=== PATIENT | female | born 1990 | race Caucasian/White ===

== ENCOUNTER 2021-01-11 14:27 | Outpatient (CLI) | payer BC, SELFPAY ==
--- NOTE | ~2021-01-11 | CT_ITS ---
EXAMINATION: CT abdomen pelvis w con DATE: 01/11/2021 14:51 INDICATION: Abdominal wall pain TECHNIQUE: Computed tomography (CT) of the abdomen and pelvis was performed with 100 cc Omnipaque 350 intravenous contrast. Automated exposure control and iterative reconstruction technique were employe d. Exam dose: 198.12 mGy-cm total exam DLP. COMPARISON: 09/29/2018 CT abdomen pelvis 04/25/2016 gallbladder ultrasound FINDINGS: The lung bases are clear. Normal heart size. No pericardial or pleural effusion. The liver, gallbladder, bile ducts, spleen, pancreas, pancreatic duct, and adrenal glands and kidneys are unremarkable, except for a chronic stable area of probable scarring at the posterolateral aspect of the inferior right kidney, unchanged since 09/02/2018.. No urinary tract calculus or hydroureteron ephrosis. Normal caliber of the abdominal aorta. No intraperitoneal or retroperitoneal or pelvic mass lesion or adenopathy or ascites is evident. There is an approximately 2.2 cm right ovarian cyst. There is mini mal likely physiologic free fluid in the right cul-de-sac. The uterus and left adnexal area are unrem arkable. The urinary bladder is unremarkable. There is a prominent amount of fecal material in the rectum and colon but no bowel obstruction. No minna wel wall thickening, pneumatosis or intraperitoneal free air is detected. Normal abdominal wall pathology is identified. Included skeletal structures are unremarkable. IMPRESSION: 2.2 cm right ovarian cyst Chronic small scarring at the lower pole of the right kidney, stable since 09/02/2018 Reviewed, dictated and finalized at [facility] Reviewed, dictated and finalized at [facility].
== END 2021-01-11 14:28 | disposition home or self-care (01) ==
LOC: ANHIMG 14:33
PROVIDERS: PCP Chiropractor; Visit Provider Obstetrics & Gynecology
DX: R10.9 Unspecified abdominal pain (principal)
CPT/HCPCS: 74177; Q9967

== ENCOUNTER 2023-06-06 19:34 | Emergency (ER) | payer OTHER, SELFPAY ==
[2023-06-06 19:55] VITALS: BP 103/63; PULSE 122; RESP 20; TEMP 37.3; O2SAT 100
--- NOTE | 2023-06-06 23:40 | ED.ABDPAIN ---
HPI - Abdominal Pain General Chief Complaint: Abdominal Pain Stated Complaint: abd pain for 24 hrs Time Seen by Provider: 06/06/23 22:59 Source: patient Limitations: no limitations History of Present Illness MD elicited complaint: abdominal pain Pertinent past history: none Onset (ago): hour(s) (Approximately 03:30 Sunday) Pain Consistency: intermittent Location: suprapubic Severity: mild Quality: cramping Radiation: none Migration to: no migration Exacerbating factors: other (bearing down, anxiety) Relieving factors: nothing Context: denies foreign travel, denies possible food poisoning, denies sick contacts, denies recent antibiotic use, denies recent surgery/procedure, denies recent injury or confirms history of similar episodes (feels similar to period cramps but worse, currently on menses.) Associated symptoms: nausea, vomiting (once, NBNB), fever (102 oral) and other (admits to myalgias. Tolerating liquids. Denies vaginal discharge. Admits to vaginal bleeding typical or her menses. ) Treatments prior to arrival: NSAIDs (ibuprofen 800 mg TID) Related Data Allergies Allergy/AdvReac Type Severity Reaction Status Date / Time gluten Allergy Intermediate RASH,VOMITI Verified 06/06/23 23:35 NG Review of Systems Review of Systems: A 10 system review of systems was completed on the patient and is negative except for what is stated in the HPI. Nursing and ancillary documentation was reviewed. PMFSH Comments At time of signature, I have reviewed and agree with nursing past medical, surgical, social and family history unless otherwise noted. Please see the nursing chart for further information. There is no relevant family history pertinent to the presenting complaint. Exam Narrative: CONST: No acute distress. Well nourished. HENMT: Head is normocephalic and atraumatic. Dry mucous membranes. No posterior oropharynx erythema. EYES: No conjunctival icterus, injection, or pallor. PERRL. NECK: No meningeal signs. RESP: Able to speak in full sentences. Normal respiratory effort. CTAB. CARDIO: Regular rate. Regular rhythm. 2+ DP and radial pulses bilaterally. GI: Nondistended. No tenderness to palpation. Soft. : No CVA tenderness to palpation. SKIN: No rashes or lesions noted on exposed skin. NEURO: Oriented x3. Moves all extremities. EXTREM: No pedal edema. PSYCH: anxious. Course Vital Signs Vital signs: Vital Signs Temperature 99.2 F 06/06/23 19:55 Pulse Rate 122 H 06/06/23 19:55 Respiratory Rate 20 06/06/23 19:55 Blood Pressure 103/63 06/06/23 19:55 Pulse Oximetry 100 06/06/23 19:55 Oxygen Delivery Room Air 06/06/23 19:55 Temperature 99.2 F 06/06/23 19:55 Pulse Rate 100 06/07/23 04:14 Respiratory Rate 12 06/07/23 04:14 Blood Pressure 102/66 06/07/23 04:14 Pulse Oximetry 100 06/07/23 04:14 Oxygen Delivery Room Air 06/06/23 19:55 MDM - Abdominal Pain MDM Narrative Medical decision making narrative: Patient presents with the above complaint. Initial vitals are remarkable for tachycardia. Patient appears in no acute distress, mildly anxious, dehydrated. Abdominal exam without peritoneal signs. Well appearing. Low suspicion for acute hepatobiliary disease, acute pancreatitis, PUD, acute infectious processes (pneumonia, hepatitis, pyelonephritis), strangulated hernia, acute appendicitis, vascular catastrophe, mesenteric ischemia, bowel obstruction or viscus perforation. Presentation not typical of gynecologic emergencies such as TOA, Ovarian Torsion, PID, ectopic . Currently dehydrated. Plan discussed: laboratory analysis, EKG done in triage, zofran 4 mg IVP, toradol 15 mg IVP, 1 L bolus. No chest pain or shortness of breath. Aside from nausea no symptoms concerning for ACS, suspect T wave inversions diffusely are old/chronic and potentially stress related. No risk factors for ACS or PE. Discomfort is suprapubic in location. I had a discussion w
[2023-06-06 23:50] VITALS: BP 116/82; PULSE 108; RESP 12; O2SAT 100
[2023-06-06] MEDS: ONDANSETRON INJ 4 MG/2 ML VIAL IV PUSH (23:52)
[2023-06-06] MEDS: KETOROLAC 15 MG/ML VIAL (*BKC) IV PUSH (23:52)
[2023-06-06] MEDS: LACTATED RINGERS 1,000 ML 999 ML IV CONT (23:52)
[2023-06-07 00:03] LABS: Basophils Percent Auto 0.2 % (0.2-1.2); Hematocrit 41.2 % (37.0-47.0); Immature Granulocyte Absolute 0.01 K/mm3 (0.00-0.031); Immature Granulocyte Percent A 0.2 % (0-0.5); Lymphocytes Absolute Auto 0.25 K/mm3 (0.9-3.2); Lymphocytes Percent Auto 4.4 % (18.3-44.2); Mean Corpuscular Hemoglobin 31.5 pg (26-34); Mean Corpuscular Volume 92.8 fl (80-100); Mean Platelet Volume 9.2 fl (7.4-10.4); Monocytes Absolute Auto 0.2 K/mm3 (0.1-0.6); Monocytes Percent Auto 3.5 % (2.6-8.5); Neutrophils Absolute Auto 5.3 K/mm3 (1.3-6.7); Neutrophils Percent Auto 91.7 % (45.5-73.1); Platelet Count Result 191 k/mm3 (150-375); Red Blood Count 4.44 M/mm3 (4.2-5.4); Red Cell Distribution Width 11.9 % (11.5-14.5); White Blood Count 5.7 K/mm3 (4.5-10.0)
--- NOTE | 2023-06-07 00:06 | ECG_ITS ---
Measurements Intervals [place] Rate: 103 P: 59 [place]: 91 QRS: 65 QRSD: 88 T: -21 QT: 332 QTc: 435 Interpretive Statements SINUS TACHYCARDIA WITH SHORT [place] INTERVAL DELAYED PRECORDIAL R/S TRANSITION ST-T WAVE ABNORMALITY IN ANT/INF LEADS- CONSIDER ISCHEMIA ABNORMAL ECG NO PREVIOUS ECG AVAILABLE FOR COMPARISON Electronically Signed On 06-07-2023 8:22:38 CDT by Perry Krishnamurthy D.O.
[2023-06-07 00:16] LABS: Alanine Aminotransferase 22 U/L (6-35); Alkaline Phosphatase 65 U/L (38-126); Anion Gap 14 mmol/L (8-16); Aspartate Amino Transferase 34 U/L (14-36); Bilirubin,Total 0.6 mg/dL (0.2-1.3); Blood Urea Nitrogen 12 mg/dL (7-17); Calcium 9.3 mg/dL (8.4-10.2); Carbon Dioxide 20 mmol/L (22-30); Chloride 103 mmol/L (98-107); Estimated CRCL calculation 79 ml/min; Estimated Glomerular Filt Rate > 60; Glucose 120 mg/dL (65-110); Lipase 59 U/L (23-300); Magnesium 1.8 mg/dL (1.6-2.3); Sodium 137 mmol/L (137-145)
[2023-06-07 00:39] LABS: Influenza A QL RT-PCR Negative (Negative); Influenza B QL RT-PCR Negative (Negative); SARS-CoV-2 RNA PCR Negative (Negative)
[2023-06-07 01:45] VITALS: BP 113/83; PULSE 100; RESP 14; O2SAT 100
[2023-06-07 01:58] LABS: Appearance Urine Cloudy (Clear); Bacteria Urine None Seen /hpf; Bilirubin Urine Negative (Negative); Blood Urine Negative (Negative); Color Urine Dark Yellow (Yellow); Glucose Urine UA Negative (Negative); Ketones Urine 4+ mg/dL (Negative); Leukocyte Esterase Ur Negative LEU/UL (Negative); Need Manual Microscopic Reviewed; Nitrate Urine Negative (Negative); Protein Urine 1+ mg/dL (Negative); RBC Urine 0-2 /hpf (0-2); Squamous Epithelial Cell Urine Few /hpf (Few); Urobilinogen Urine 0.2 mg/dL (<2.0); WBC Urine 0-5 /hpf; pH Urine 5.5 (5.0-9.0)
[2023-06-07 01:59] LABS: Add Urine Microscopic? YES
[2023-06-07 04:14] VITALS: BP 102/66; PULSE 100; RESP 12; O2SAT 100
== END 2023-06-07 04:10 | disposition home or self-care (01) ==
PROVIDERS: Emergency Provider Student in an Organized Health Care Education/Training Program; PCP Chiropractor
DX: R10.30 Lower abdominal pain, unspecified (principal); R11.2 Nausea with vomiting, unspecified; R82.4 Acetonuria; Z20.822 Contact with and (suspected) exposure to COVID-19
CPT/HCPCS: 36415; 80053; 81001; 81025; 83690; 83735; 85025; 87636; 93005; 96361; 96374; 96375; 99284; J1885; J2405; J7120

== ENCOUNTER 2023-12-19 03:33 | Day surgery (SDC) | payer OTHER, SELFPAY ==
[2023-12-12 10:28] VITALS: BMI 20.1
--- NOTE | 2023-12-12 10:34 | PC.NURSE ---
Report to the Outpatient Waiting Room, entrance under the green pavilion located off [facility], at time 0800 on date 12/19/23. Planned Procedure Time: 1000. Time changes happen often and if your time is changed the preop area will call you the afternoon before. - You and your visitor will be asked to self-screen and do not enter if you have any COVID symptoms. - A mask is optional within the hospital at this time. Patients may have clear liquids (water, carbonated beverages, clear teas, apple juice) until 3 hours prior to surgery with a maximum of 20 ounces. - No food from midnight until time of surgery Take the following medications with a SIP of water the morning of surgery: NONE DO NOT STOP ANY OF YOUR OTHER PRESCRIPTION MEDICATIONS PRIOR TO SURGERY ?EXCEPT THE FOLLOWING Medications to discontinue per physician: VITAMINS Date to take last dose: 12/15/23 Please no make-up, nail panamanian, hairspray, perfume, deodorant, or body powder the day of surgery. No jewelry (including any body piercings) or valuables the day of surgery, leave them at home. Please take a shower or bath the night before, or the morning of, surgery with an antibacterial soap. Wear comfortable, loose fitting clothing. - Jewelry must be removed prior to entering the operating room. Rings and piercings that are not removed may be cut off. - The hospital will not accept responsibility for valuables. - Please leave all valuables, including medications, at home the day of surgery. If you are going home after surgery, a licensed charter driver must drive you home. - NO public transportation without another adult if you receive anesthesia. - We recommend that an adult stay with you for 24 hours following discharge. - We also recommend that you do not drive, make important decision, drink alcoholic beverages, or take any drugs that were not prescribed by your health care provider for at least 24 hours after your discharge time. Follow any additional instructions given to you from your surgeon. If you or anyone in your household have experienced Covid symptoms in the past week, please notify your surgeon or the nurse liaison at the phone number below for possible testing. Telephone instructions given to MICHAEL MERINO and asked if any additional questions and then verbalized understanding. Patient advised to call surgeon office or pre surgery nurse liaison [phone] if any additional questions.
[2023-12-19] VITALS (8 sets, daily range): BP systolic 99–114; BP diastolic 50–70; PULSE 87–100; RESP 12–16; TEMP 37–37.3; O2SAT 100
[2023-12-19] MEDS: ACETAMINOPHEN 500 MG TABLET 1000 MG PO (08:21)
[2023-12-19] MEDS: LACTATED RINGERS 1,000 ML 30 ML IV CONT ×2 (08:25→11:54)
[2023-12-19] MEDS: KETOROLAC 15 MG/ML VIAL (*BKC) IV PUSH (08:28)
[2023-12-19] MEDS: SCOPOLAMINE 1 MG PATCH 1 PATCH TRANSDERM (08:35)
--- NOTE | 2023-12-19 09:04 | WPDANESEPPF ---
Anes - Initial Pre Proc Eval Procedure: Operation Date: 12/19/23 10:00 Proposed Procedures p Diagnostic Laparoscopy with Bilateral Salpingectomy - Cory Acosta MD Date/Time: 12/19/23 09:04 Surgeon: Cory Acosta MD Pre Op Diagnosis: pelvic pain Patient Data Age: 33 Gender: F Height: 1.57 m Weight: 49.1 kg Last Vital Signs Temp 37.3 C 12/19/23 07:55 Pulse 91 12/19/23 07:55 Resp 16 12/19/23 07:55 BP 111/64 12/19/23 07:55 Pulse Ox 100 12/19/23 07:55 O2 Del Method Room Air 12/19/23 07:55 Allergies Allergy/AdvReac Type Severity Reaction Status Date / Time gluten Allergy Intermediate RASH,VOMITI Verified 12/19/23 07:57 NG Home Medications Medication Instructions Recorded Confirmed Type multivitamin 1 tablet PO DAILY 12/12/23 12/19/23 History Patient hx anesthesia problems: none Family hx anesthesia problems: none Results Review: All pre-operative results and documents have been reviewed as part of the pre-operative evaluation. [facility] Past Medical History Medical History (Updated 12/19/23 @ 09:04 by Marco A Lin MD) Lyme disease Surgical History Surgical History (Updated 12/19/23 @ 09:04 by Marco A Lin MD) History of section Social History Social History Smoking status: Never smoker Alcohol intake: never Substance use: never Substance use type: does not use Living arrangements: with family Spiritual care concerns: No Anes - Eval Final PreProcedure Day of Procedure 12/19/23 09:04 Patient weight: normal Heart: regular rate and rhythm Lungs: clear to auscultation Airway: Mallampati scale class II Neurological: alert and oriented Last oral intake: >/= 8 hours ASA classification: II Emergent: no Anesthetic plan: proceed Anesthesia type and monitoring: general ETT and standard monitoring Results Review: All pre-operative results and documents have been reviewed as part of the pre-operative evaluation. Informed Consent: The patient's anesthetic plan and its attendant risks and benefits were discussed with the patient/family/POA. Questions were solicited and answers provided to the satisfaction of the patient/family/POA.
--- NOTE | 2023-12-19 09:49 | PM.IMHP ---
H&P: HPI History of Present Illness Date/Time: 12/19/23 09:49 Chief Complaint: Pelvic pain, unwanted fertility Narrative: this patient is a 33-year-old female who presents for preoperative care. She has pelvic pain and unwanted fertility. We agreed to perform diagnostic laparoscopy and bilateral salpingectomy. She is a possible endometrioma. The patient understands the procedure. The procedure was described to the patient in great detail. the patient also understands the risks. The risks were also explained in detail. She understands that injuries May occur during surgery. She understands these injuries can result in hospitalization, more surgery, and severe illness. She understands there is risk of hemorrhage and infection. ROS Review of Systems Review of Systems: All systems reviewed & are unremarkable except as noted in HPI and below Constitutional: Constitutional: Denies chills, Denies fatigue, Denies fever(s) and Denies weakness Eyes: Eyes: Denies blurry vision, Denies change in vision, Denies loss of peripheral vision, Denies loss of vision, Denies other visual disturbances and Denies eye pain ENT: Denies vertigo, Denies dizziness, Denies hearing loss, Denies mouth pain, Denies nasal obstruction, Denies neck mass and Denies neck pain Cardiovascular: Cardiovascular: Denies chest pain, Denies diaphoresis, Denies syncope, Denies leg edema and Denies dyspnea Respiratory: Respiratory: Denies chest congestion, Denies cough, Denies hemoptysis, Denies dyspnea and Denies wheezing Gastrointestinal: Gastrointestinal: Denies abdominal pain, Denies constipation, Denies diarrhea, Denies nausea and Denies vomiting Genitourinary: Genitourinary: Denies hematuria, Denies change in libido, Denies nocturia, Denies genital lesions, Denies flank pain and Denies urinary urgency Musculoskeletal: Musculoskeletal: Denies abnormal gait, Denies back pain, Denies myalgias, Denies arthralgias, Denies joint swelling, Denies muscle weakness and Denies neck pain Integumentary/Breasts: Skin/Breast: Denies swelling, Denies breast pain, Denies breast mass, Denies dry skin, Denies nipple discharge, Denies unusual bruising and Denies jaundice Neurologic: Denies Neuro-related abnormal movements, Denies Abnormal speech present, Denies abnormal gait, Denies behavioral changes, Denies confusion, Denies vertigo, Denies dizziness, Denies syncope, Denies loss of vision, Denies memory loss, Denies convulsions and Denies weakness Psychiatric: Psychiatric: Denies abnormal sleep pattern, Denies behavioral changes, Denies change in libido, Denies confusion, Denies depression, Denies anhedonia and Denies memory loss Endocrine: Endocrine: Reports no additional endocrine complaints, Denies change in libido and Denies fatigue Hematologic/Lymphatic: Hematologic/Lymphatic: Reports no additional hematologic/lymphatic complaints Allergic/Immunologic: Allergic/Immunologic: Reports no additional allergic/immunologic complaints and Denies wheezing PMFSH Past Medical History Medical History (Updated 12/19/23 @ 09:51 by Cory Acosta MD) Lyme disease Surgical History Surgical History (Updated 12/19/23 @ 09:04 by Marco A Lin MD) History of section Social History Social History Smoking status: Never smoker Alcohol intake: never Substance use: never Substance use type: does not use Living arrangements: with family Spiritual care concerns: No Meds Home Medications and Allergies Home Medications Medication Instructions Recorded Confirmed Type multivitamin 1 tablet PO DAILY 12/12/23 12/19/23 History Allergies Allergy/AdvReac Type Severity Reaction Status Date / Time gluten Allergy Intermediate RASH,VOMITI Verified 12/19/23 07:57 NG Vital Signs Vital Signs - 24 hr 12/19/23 07:55 Temperature 99.2 F Pulse Rate 91 Respiratory Rate 16 Blood Pressure 111/64 Pulse Oximetry 100 Oxygen Delivery Room Air Exam Const:
--- NOTE | 2023-12-19 09:51 | WPDHPUPDATE1 ---
History and Physical Update Update Date/Time: 12/19/23 09:51 History and Physical has been reviewed, including an updated exam of the patient. There are NO changes in the patient's condition. Risks, benefits, and alternatives have been discussed and questions answered. Patient agrees to proceed with procedure.
--- NOTE | 2023-12-19 12:04 | W.PM.PROC2 ---
Procedure Note - Detailed Date of Procedure 12/19/23 Pre-op Diagnosis pelvic pain Post-op Diagnosis Same ( endometriosis) Procedure Performed Diagnostic laparoscopy Surgeon Cory Acosta MD Anesthesia General Indications Pelvic pain Findings Left ovarian endometrioma, multiple endometrial implants in the deep pelvis favoring the left side. Description of Procedure The patient was taken to the operating room. She was prepped and draped in the dorsal lithotomy position after induction general anesthesia. A 5 mm incision was made with a scalpel on the abdominal skin in the left upper quadrant of the abdomen. A 5 mm trocar was inserted into the intra-abdominal cavity under direct visualization the scope. In the same fashion a 5 mm left lower quadrant trocar was inserted and a 5 mm infraumbilical trocar was inserted. Left ovarian cystectomy was performed. This was done with the LigaSure cautery, monopolar cautery, blunt dissection. Dome of the cyst capsule was removed. Cyst capsule was peeled out of the ovary and cautery was applied to the bleeding areas on the cut surface. Radical dissection of endometriosis perform a left hemipelvis. Ovary was suspended using the Ean-Lauri needle placed through the abdominal wall the left lower quadrant through the ovary passing suture. The suture was redrawn the same incision with the needle and held there with a hemostat. Pelvic peritoneum in the left hemipelvis was removed from the rectum laterally to the suspensory ligament the ovary and the infundibulopelvic ligament of the ovary. From the infundibulopelvic ligament down to the uterine arteries. This was done with sharp and blunt dissection using cautery to transect the vascularity. The ureter was dissected out from the pelvic brim down to the uterine artery. Various implants of endometriosis were removed and cauterized in the deep pelvis and the distal medial right hemipelvis. This was done with cautery and blunt , sharp dissection. The pelvis was irrigated. The pneumoperitoneum was reduced. The trocars were removed. Skin was closed with subcuticular 4 micro. The patient's incisions were covered with Dermabond. She was taken recovery room in stable condition. Sponge lap and needle counts were correct x2. Estimated Blood Loss 50 Pathology Yes Complications No immediate complications Condition Stable Disposition Same day
[2023-12-19] MEDS: ONDANSETRON INJ 4 MG/2 ML VIAL IV PUSH (12:06)
[2023-12-19] MEDS: fentaNYL CITRATE INJ (*CRX) 100 MCG/2 ML VIAL 25 MCG IV PUSH (12:24)
== END 2023-12-19 13:31 | disposition home or self-care (01) ==
PROVIDERS: PCP Chiropractor; Visit Provider Obstetrics & Gynecology
PROC: (CPT 49320; principal; 2023-12-19 10:00)
DX: N80.102 Endometriosis of left ovary, unspecified depth (principal); N80.399 Endometriosis of the pelvic peritoneum, other specified sites, unspecified depth; N80.203 Endometriosis of bilateral fallopian tubes, unspecified depth; Z30.2 Encounter for sterilization
CPT/HCPCS: 58662; 58661; 88302; 88305; A9270; J1100; J1885; J2250; J2405; J2704; J3010; J7030; J7120

== ENCOUNTER 2024-10-29 10:28 | Outpatient (CLI) | payer OTHER, SELFPAY ==
--- NOTE | ~2024-10-29 | MMUS_ITS ---
EXAMINATION: MM diagnostic sabrina BI w neris, US breast RT limited HISTORY: Palpable right breast lump TECHNIQUE: Additional 3-D tomosynthesis images of the breasts were performed and synthetic 2-D images were generated. CAD analysis was submitted and interpreted. High resolution Limited right breast ult rasound was performed. COMPARISON: No prior studies for comparison. BREAST PARENCHYMAL COMPOSITION: Dense: The breasts are extremely dense, which lowers the sensitivity of mammography. FINDINGS: MAMMOGRAPHIC FINDINGS: There is a small circumscribed mass in the upper outer quadrant of the right breast in the area of pa lpable concern. No suspicious calcifications or architectural distortion. No mammographic evidence fo r malignancy in the left breast. ULTRASOUND: Limited right breast ultrasound: At 9:00, 2 cm from the nipple there is a 4 mm cyst corresponding to the palpable abnormality. IMPRESSION: 1. No evidence for malignancy in either breast. Benign finding. 2. Recommend follow-up mammogram at age 42 unless otherwise clinically indicated. BI-RADS Category 2: Benign finding(s). Reviewed, dictated and finalized at location A. E CALLS NURSE IMPRESSION: 1. No evidence for malignancy in either breast. Benign finding. 2. Recommend follow-up mammogram at age 42 unless otherwise clinically indicate d. BI-RADS Category 2: Benign finding(s).
--- OUTSIDE RECORDS SUMMARY | 2024-10-29 11:29 | XMS_ITS | Clinical Summary ---
Author Organization [facility] Address [address] [place] [address] Care Team Providers Care Merchandise Buyer Name Role Phone Pancho Rogers DC Primary Care Provider Allergies Active Allergy Reactions Criticality Noted Date Comments Gluten Unknown 01/08/2019 Medications No known medications Active Problems Problem Noted Date Diagnosed Date Preop examination 09/21/2023 Abnormal ECG 09/21/2023 Lyme disease 01/03/2019 Overview (02/24/2019): this diagnosis is poorly defined with no set diagnostic criteria and is often used to describe chronic pain, fatigue, neurocognitive, and behavioral symptoms, and a host of neurologic and rheumatologic diseases. I've requested that Tamara bring her medical records surrounding Lyme Disease to her next appointment (she states that she has them at home). Given the lack of diagnostic criteria, there is no literature for Chronic Lyme Disease and . I took the liberty of looking up the ingredients in [employer] and found the following: Magnesium citrate, bovine ovary PMG extract, bovine adrenal PMG extract, bovine pituitary PMG extract, and bovine thyroid PMG extract. Given the lack of study in and the likelihood that risks exceed benefits, I would recommend discontinuation of this supplement. Mitral valve disorder 01/03/2019 Chest pain 06/03/2013 Difficulty breathing 06/03/2013 Overview (02/24/2019): Tamara is currently undergoing work-up with a public safety director and we will follow along. Of note, her vital signs/O2 saturation was normal today. Her echocardiogram showed no evidence of mitral valve prolapse, but there was mild mitral valve, tricuspid valve, and pulmonic valve regurgitation. In general, mild valve regurgitation is well-tolerated in in the setting of normal left ventricular systolic function, but we will see her back after her cardiology follow-up visit to review the work-up and make any additional recommendations. In the interim, she was given strict precautions for calling/presenting to the emergency department with any concerning cardiac symptoms. Palpitations 04/29/2013 Lumbago 12/05/2011 Resolved Problems Problem Noted Date Diagnosed Date Resolved Date 23 weeks gestation of 03/08/2019 02/26/2020 Supervision of high-risk pre gnancy, unspecified trimester 01/03/2019 02/26/2020 Overview (02/04/2019): Labs: B positive Antibody screen- negative HBsAg nonreactive Hep C nonreactive HIV nonreactive RPR nonreactive Rubella Immune HGB 13.5 HCT 39.7 GC/CHL negative Platelet 267 HGB A1C 4.8 Bacteremia 06/20/2013 02/26/2020 Immunizations Name Administration Dates Next Due Tdap 06/30/2019 Surgical History Surgery Date Site/Laterality Comments SECTION Medical History Medical History Date Comments Lyme disease Mitral valve regurgitation Family History Medical History Relation Name Comments Cancer Mother Diabetes Other 1 Breast cancer Other 2 Relation Name Status Comments Brother Father Alive Mother Alive Other 1 Other 2 Social History Tobacco Use Types Packs/Day Years Used Date Smoking Tobacco: Never Smokeless Tobacco: Never Tobacco Cessation:Counseling Given: Not Answered Alcohol Use Standard Drinks/Week Comments Never 0 (1 standard drink = 0.6 oz pur e alcohol) AUDIT-C Answer Date Recorded Frequency of Alcohol Consumption Never 01/08/2019 Average Number of Drinks Not on file 019 Frequency of Binge Drinking Not on file 12/30 PHQ-2 Answer Date Recorded PHQ-2 Total Score 0 02/26/2020 Personal Safety Answer Date Recorded Getting School Help Needed Not on file 09/12 Comments No Sex and Gender Information Value Date Recorded Sex Assigned at Not on file Legal Sex Female 2:37 AM MEDICAL DIRECTOR OF HOSPICE Gender Identity Not on file Sexual Orientation Not on file Obstetrics History Para Term AB IAB SAB Ectopic Multiple Livin g Live Births 1 Date Outcome GA Total Labor Labor/2nd/3rd Weight Sex Type Anes PTL Mariola A1 A5 Name Clin Last Filed Vital Signs Vital Sign Reading Time Taken Comments Blood Pressure 90/68 11/01/2023 2:25 PM MEDICAL DIRECTOR OF HOSPICE Pulse 79 11/01/2023 2:25 PM MEDICAL DIRECTOR OF HOSPICE Temperature 36.8 ??C (98.3 ??F) 02/26/2020 9:31 AM CD T Respiratory Rate 16 11/01/2023 2:25 PM MEDICAL DIRECTOR OF HOSPICE Oxygen Saturation 99% 11/01/2023 2:25 PM MEDICAL DIRECTOR [employer] HOSPICE Inhaled Oxygen Concentration - - Weight 49.4 kg (109 lb) 11/01/2023 2:25 PM MEDICAL DIRECTOR OF HOSPICE Height 157.5 cm (5' 2 ) 11/01/2023 2:25 PM MEDICAL DIRECTOR [employer] HOSPICE Body Mass Index 19.94 11/01/2023 2:25 PM MEDICAL DIRECTOR OF HOSPICE Plan of Treatment Health Maintenance Due Date Last Done Comments Varicella Vaccines (1 of 2 - 13+ 2-dose series) 2005 Hepatitis B Screening 2010 Regular Well Visit/Exam 18-64 2010 Cervical Cancer Screening 11/08/2018 11/08/2017 Depression Screening 02/25/2021 02/26/2020 Influenza Vaccine (#1) 2024 DTaP/Tdap/Td Vaccine (2 - Td or Tdap) 06/30/2029 06/30/2019 Hepatitis C Screening Completed 12/24/2018 HPV Vaccines Aged Out No longer eligi ble based on patient's age to complete this topic Pneumococcal vaccine <65 Aged Out No longer eligible based on patient's age to complete this topic Procedures Procedure Name Priority Date/Time Associated Diagnosis Comments HEPATITIS C ANTIBODY Routine 12/24/2018 HM PAP SMEAR Routine 11/08/2017 from Last 3 Months or Most Recently Relevant to Health Maintenance Results * Hepatitis C antibody (12/24/2018) Hep C Ab negative Blood specimen (specimen) Mehran Acosta MD LAB MICROBIOLOGY - GENERAL OR DERABLES Final Result * PAP SMEAR (11/08/2017) Pap smear Normal 11/08/2017 us Historical Provider HEALTH MAINTENANCE Final Result from Last 3 Months or Most Recently Relevant to Health Maintenance Insurance [employer] OPEN ACCESS [employer] OPEN ACCESS Care Teams Merchandise Buyer Relationship Specialty Start Date End Date Pancho Rogers DC [address] [place] [address] PCP - General Chiropractic Medicine 09/21/23
--- OUTSIDE RECORDS SUMMARY | 2024-10-29 11:29 | XMS_ITS | Clinical Summary ---
Author Organization [facility] Address [address] [place] [address]. [place], [place] [id number] [place] [id number] Care Team Providers Care Outdoor Recreation Specialist Name Role Phone Valentina Harrington MD Primary Care Provider [phone] Allergies No known active allergies Medications fish oil (OMEGA-3 FATTY ACID) 1000 MG Cap capsule Take 1,000 mg by mouth daily. Unsure of dose Active NON FORMULARY Take 1 tablet by mouth daily. immuplex dietary supplement Active Family History Medical History Relation Comments Diabetes Maternal Aunt Cancer Mother breast Diabetes Mother Liver Disease Paternal Uncle Relation Status Comments Maternal Aunt Mother Alive Paternal Uncle Social History Tobacco Use Types Packs/Day Years Used Date Smoking Tobacco: Never Smokeless Tobacco: Never Alcohol Use Standard Drinks/Week Comments Not Currently 0 (1 standard drink = 0.6 oz pur e alcohol) Comments No Sex and Gender Information Value Date Recorded Sex Assigned at Not on file Legal Sex Female 8:47 PM CDT Gender Identity Not on file Sexual Orientation Not on file Last Filed Vital Signs Vital Sign Reading Time Taken Comments Blood Pressure 97/50 03/31/2020 9:35 AM CDT Pulse 87 03/31/2020 9:35 AM CDT Temperature 37.2 ??C (99 ??F) 03/31/2020 9:35 AM CDT Respiratory Rate 16 03/31/2020 9:35 AM CDT Oxygen Saturation 100% 03/31/2020 9:35 AM CDT Inhaled Oxygen Concentration - - Weight 50.4 kg (111 lb 1.8 oz) 03/31/2020 6:00 A M CDT Height 160 cm (5' 3 ) 03/31/2020 6:00 AM CDT Body Mass Index 19.68 03/31/2020 6:00 AM CDT Plan of Treatment Health Maintenance Due Date Last Done Comments Annual Physical 1995 Hepatitis C 2010 DTaP, Tdap and Td Vaccines ( 1 - Tdap) 2011 Hepatitis B Vaccines (1 of 3 - 19+ 3-dose series) 2011 Cervical Cancer Screening Pa p Smear (Age 30 to 64) Every 3 Years 05/22/2017 05/22/2014, 05/22/2014 Cervical Cancer Screening Pa p with HPV Testing (Age 30 to 64) Every 5 Years 2022 Cervical Cancer Screening wi th HPV 2022 COVID-19 Vaccine (2023-2 5 season) 2024 Influenza Adult (#1) 2024 HPV Vaccines Aged Out No longer eligi ble based on patient's age to complete this topic Meningococcal B Vaccine Aged Out No l onger eligible based on patient's age to complete this topic Meningococcal Vaccine Aged Out No amrit melani eligible based on patient's age to complete this topic Pneumococcal Vaccine: Pediatrics (0 to 5 Years) and At-Risk Patients (6 to 64 Years) Aged Out No longer eligible b ased on patient's age to complete this topic RSV Immunizations Under 20 Months Aged Out No longer eligible b ased on patient's age to complete this topic Procedures Procedure Name Priority Date/Time Associated Diagnosis Comments THINPREP IMAGING SYSTEM PAP Routine 05/22/2014 12:46 PM CDT from Last 3 Months or Most Recently Relevant to Health Maintenance Results * THINPREP IMAGING SYSTEM PAP (05/22/2014 12:46 PM CDT) THIN PREP PAP [facility] TO [facility] CONVERSION Comment: Patient Name: ANGELIQUE THOMPSON Specimen #: [id number] ??Procedure Date: 05/22/2014 /Age: 8 1990 (Age: 23) Gender: ??F Accessioned: 05/23/2014 Address: [address] [place], [place] ??[address] Reported: 05/30/2014 ?? Encounter: [id number] Location: [facility] ?? Physician(s): ROSE MARY WATSON MD ?? : ? CYTOPATHOLOGY - GYNECOLOGIC REPORT Diagnosis: TEST NAME: ??THINPREP PAP WITH BRANCH SERVICE REPRESENTATIVE,REFLEX HPV-ASCUS ONLY INTERPRETATION/RESULT: NEGATIVE FOR INTRAEPITHELIAL LESION OR MALIGNANCY. ?? STATEMENT OF ADEQUACY: SATISFACTORY FOR EVALUATION; ENDOCERVICAL/TRANSFORMATION ZONE COMPONENT PRESENT; PARTIALLY OBSCURING BLOOD. ?? LJR JEREMY MARCELO, ??CT (ASCP) hta/05/30/2014 Report Electronically Signed Specimen: THINPREP PAP WITH BRANCH SERVICE REPRESENTATIVE,REFLEX HPV-ASCUS ONLY Clinical Diagnosis and History Date of Last Menstrual Period: ? [id number] Specimen Source: Cervical ? PAP SMEARS ARE SCREENING TESTS SUBJECT TO BOTH FALSE NEGATIVE AND FALSE POSITIVE RESULTS EVIDENCED BY DATA PUBLISHED IN THE MEDICAL LITERATURE. YOUR PATIENT'S RESULT SHOULD BE INTERPRETED IN THIS CONTEXT, TOGETHER WITH THE PATIENT'S HISTORY AND CLINICAL FINDINGS. 05/22/2014 12:4 6 PM CDT Narrative [facility] CONVERSION - 05/22/2014 12:46 PM CDT [[facility] Forward[facility] to [facility]] Send nml pap card us Rose Mary Watson MD PATHOLOGY/CYTOLOGY ORDERABLES [facility] Result [facility] TO [facility] CONVERSION from Last 3 Months or Most Recently Relevant to Health [place] [address] [facility] Care Teams Outdoor Recreation Specialist Relationship Specialty Start Date End Date Valentina Harrington MD [address] [place] [id number] PCP - General FAMILY PRACTICE 03/26/20
--- OUTSIDE RECORDS SUMMARY | 2024-10-29 11:29 | XMS_ITS | Data Portability ---
Author Organization [facility] Address [address] [place] [address] Care Team Providers Care Crystal Finisher Name Role Phone ARMENDARIZMARLIN Primary Care Provider [phone] Assessment Encounter Date Assessment Date Assessment LastModified by Organization Details LastModified Time 07/28/2021 07/28/2021 Annual gynecological exam performed. Patient will come back in a year unless there are new symptoms. Not available 07/28/2021 15:54:56 10/14/2024 10/14/2024 Annual gynecological exam performed. Patient will come back in a year unless there are new symptoms. [email or web address] Not available 10/14/2024 14:30:03 Plan of Treatment Reminders Order Date Submit Date Provider Last Modified By Organization Details Last Modified Time Details Appointments None recorded. Lab None recorded. Referral None recorded. Procedures None recorded. Surgeries hysteroscop y, with endometrial ablation (SURG) 2022 023 [email or web address] 4 [facility], [address] [place] [address], [address], 4 17:11:06 laparoscopy , diagnostic (SURG) 2022 023 API-[id number] [facility], [address] [place] [address], [address], 4 11:32:35 salpingecto my, laparoscopi c (SURG) 2022 023 API-[id number] [facility], [address] [place] [address], [address], 4 09:53:57 Imaging MAMMO, diagnostic, digital, bilateral 2024 025 [facility], [address], [place], [address], 5 04:09:58 US, breast, unilateral - right breast lump around 9oclock 2024 025 [facility], [address], [place], [address], 5 04:09:58 Medication Orders None recorded. Patient TargetsNo targets recorded. Patient InstructionsNo instructions recorded. Reason for Referral None Reported. Results Created Date Observation Date Name Description Value Unit Range Abnormal Flag Note LastModifiedBy Organization Detail LastModifiedTime 07/28/2007/28/2021 IMAGE GUIDE D PAP, REFLE X HPV IF ASCUS ONLY image guided Pap, reflex HPV ASCUS only SEE RESULT S BELOW CASE REPOR T: Cytol ogy Gynec ologi raul Repor t Case: [id number] Autho chelita g Provi myriam: Danuta Acosta MD Colle cted: 07/28 1619 Order ing Locat ion: [place] [facility] Recei carlita: 07/29 0055 First Scree n: Zach Anguiano, CT Rescr een: Josephine Fox, CT Speci men: Scree ryan Pap - Image d, Cervi x STATE MENT OF ADEQU ACY: Satis facto ry for evalu ation Trans forma tion zone compo nent absen t The absen ce of an endoc ervic al compo nent was confi rmed by an addit ional scree ner. FINAL DIAGN OSIS: Negat marky for Intra epith elial Lesio n or Pamella dang (NIL) . Shift in mikael sugge stive of bacte rial vagin osis. Elect anish santiago sweta d by Josephine Fox, CT on 2020 at 3:08 PM ----- ----- ----- ----- ----- ----- ----- ----- ----- ----- ----- ----- ----- ----- ----- ----- ----- ---- COMME NT: Note: This speci men was revie wed by a Cytot echno logis t and/o r Patho logis t (as indic ated in this repor t) after evalu ation using the Thinp rep Imagi ng Syste m. CLINI RAUL INFOR MATIO N: Menst rual Statu s: LMP (if appli cable ): Clini raul Histo ry/Pr eviou s Pap: Type of Neopl tamika (if appli cable ): Signi fican t Clini raul Findi ngs: Other Histo ry: Hormo eugenio (if appli cable ): PAP EDUCA GARRY L NOTE: The Pap Test is a scree ryan test with an inher ent false negat marky rate. Liqui d-bas e sampl ing may decre ase, but will not elimi miriam, false negat marky resul ts. A negat marky resul t does not precl ude the prese nce and/o r devel opmen t of disea se, since the prese nce of abnor mal cells in the sampl e depen ds on the locat ion of the lesio n and sampl ing techn ique. Luis nued regul ar scree ryan is the best metho d of cance r preve ntion . If repor alicia cytol ogic findi ng do not corre late with physi raul and/o r histo rical findi ngs, furth er inves tigat ion is recom valencia d, as neisha rios nted. Not Available [facility] (Lab) [address], [place], [address], 08/04/2021 16:11:17 10/14/19 25 10/14/2024 IMAGE GUIDE D PAP AND HPV REGAR DLESS image guided Pap, HPV regardless of Pap result SEE RESULT S BELOW CASE REPOR T: Cytol ogy Gynec ologi raul Repor t Case: [id number] Autho chelita jay Provi myriam: Indy Richardson NP Colle cted: 10/14 1547 Order ing Locat ion: [place] [facility] [place] Recei carlita: 10/15 0123 First Scree n: Toya arguelles, Marleny carter, CT Rescr een: Taylor Cadena, CT Speci men: Urban davis Pap - Image d, Cervi x STATE MENT OF ADEQU ACY: Satis facto ry for evalu ation Trans forma tion zone compo nent prese nt ----- ----- ----- ----- ----- ----- ----- ----- ----- ----- ----- ----- ----- ----- ----- ----- ----- ---- FINAL DIAGN OSIS: Negat marky for Intra epith elial Lessourav ha or Pamella dang (NIL) . 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 COMME NT: This speci men was revie wed by a Cytot echno logis t and/o r Patho logis t (as indic ated in this repor t) after evalu ation using the Thinp rep Imagi ng Syste m. CLINI RAUL INFOR MATIO N: Menst rual Statu s: LMP (if appli cable ): Clini raul Histo ry/Pr eviou s Pap: Type of Neopl tamika (if appli cable ): Signi fican t Clini raul Findi ngs: Other Histo ry: Hormo eugenio (if appli cable ): PAP EDUCA GARRY L NOTE: The Pap Test is a scree ryan test with an inher ent false negat mraky rate. Liqui d-bas ed sampl ing may decre ase, but will not elimi miriam, false negat marky resul ts. A negat marky resul t does not precl ude the prese nce and/o r devel opmen t of disea se, since the prese nce of abnor mal cells in the sampl e depen ds on the locat ion of the lesio n and sampl ing techn ique. Luis nued regul ar scree ryan is the best metho d of cance r preve ntion . If repor alicia cytol ogic findi ng do not corre late with physi raul and/o r histo rical findi ngs, furth er inves tigat ion is recom valencia d, as clini mirlande rios nted. Not Available [facility] (Lab) [address], [place], [address], 10/21/2024 13:58:46 07/23/20 23 06/29/2023 US, pelvi s No observ ation record ed. [email or web address] Ultrasound Formerly [facility], [facility], [place], [address], 07/23/2023 21:26:48 Result Notes None recorded. Problems Name Problem SNOMED Code Status Onset Date Resolution Date Notes Provider Name and Address Organization Details Recorded Time Normal pregnanc y in multigra michael 11970130102 4106 Completed 201812/28/2020 Encounte r for suprvsn of normal pregnanc y, third trimeste r;Practi ce ID: 0001 Kirsten Salas [facility] 09:51:10 Single live [id number] Completed 201812/28/2020 Single live ;Pr actice ID: [id number] Kirsten Salas [facility] 09:51:30 Pelvic and perineal pain 868619652 Completed 201912/28/2020 Pelvic and perineal pain;Pra ctice ID: [id number] Kirsten Salas [facility] 09:51:13 Urinary tract infectio us disease 22407847 Completed 201812/28/2020 Urinary tract infectio n, site not specifie d;Record ed Elsewher e: No Locat ion: [facility] S ource: EHR Phone Triage Specialist ce: N Jennifferti ce ID: 0001 Ace lable Time: 04:30:00 PM Kirsten Salas [facility] 09:50:22 Complica tion of pregnanc y, childbir th and/or puerperi [id number] Completed 201812/28/2020 Oth diseases and conditio ns compl preg/chl dbrth;Re corded Elsewher e: No Locat ion: [facility] S ource: EHR Phone Triage Specialist ce: N Practi ce ID: 0001 Ace lable Time: 12:45:00 PM Kirsten Salas [facility] 09:52:18 Cyst of ovary Completed 201712/28/2020 Unspecif ied ovarian cyst, unspecif ied side;Rec orded Elsewher e: No Locat ion: [facility] S ource: EHR Phone Triage Specialist ce: N Practi ce ID: 0001 Ace lable Time: 03:00:00 PM Kirstenmanas Salas [facility] 09:50:[address] Concept Completed 201812/28/2020 Encntr for strategy director exam (general ) (routine ) w/o abn findings ;Recorde d Elsewher e: No Locat ion: Kirt lares [facility] S ource: EHR Phone Triage Specialist ce: N Jennifferti ce ID: 0001 Ace lable Time: 09:45:00 AM Kirsten Salas [facility] 09:51:36 Antenata l screenin g Completed 201812/28/2020 Encounte r for antenata l screenin g for nuchal transluc ency;Rec orded Elsewher e: No Locat ion: Kirt lares [facility] S ource: EHR Phone Triage Specialist ce: N Jennifferti ce ID: 0001 Ace lable Time: 02:00:00 PM Kirsten Salas [facility] 09:50:27 Gestatio n period, 20 weeks [id number] Completed 201812/28/2020 20 weeks gestatio n of pregnanc y;Record ed Elsewher e: No Locat ion: Kirt lares [facility] S ource: EHR Phone Triage Specialist ce: N Jennifferti ce ID: 0001 Ace lable Time: 09:00:00 AM Kirstenmanas Salas [facility] 09:50:56 Procedur e on genitour inary system Completed 201812/28/2020 Encounte r for surgical aftercar e followin g surgery on the genitour inary system;R ecorded Elsewher e: No Locat ion: Kirt lares [facility] S ource: EHR Phone Triage Specialist ce: N Jennifferti ce ID: 0001 Ace lable Time: 10:15:00 AM Kirsten barnett [facility] 09:51:27 Postoper ative care Completed 201812/28/2020 Encounte r for surgical aftercar e followin g surgery on the genitour inary system;R ecorded Elsewher e: No Locat ion: Kirt lares [facility] S ource: EHR Phone Triage Specialist ce: N Jennifferti ce ID: 0001 Ace lable Time: 10:15:00 AM Kirsten Salas [facility] 09:51:15 Gestatio n period, 32 weeks [id number] Completed 201812/28/2020 32 weeks gestatio n of pregnanc y;Record ed Elsewher e: No Locat ion: Jude arnaud [facility] S ource: EHR Phone Triage Specialist ce: N Practi ce ID: 0001 Ace lable Time: 08:15:00 AM Kirsten barnett [facility] 09:51:02 Gestatio n period, 27 weeks [id number] Completed 201812/28/2020 27 weeks gestatio n of pregnanc y;Record ed Elsewher e: No Locat ion: [facility] arnaud [facility] S ource: EHR Phone Triage Specialist ce: N Practi ce ID: 0001 Ace lable Time: 03:30:00 PM Kirsten barnett [facility] 09:51:00 Gestatio n period, 36 weeks [id number] Completed 201812/28/2020 36 weeks gestatio n of pregnanc y;Record ed Elsewher e: No Locat ion: [facility] arnaud [facility] S ource: EHR Phone Triage Specialist ce: N Practi ce ID: 0001 Ace lable Time: 08:15:00 AM Kirsten barnett [facility] 09:51:06 Pain in female genitali a Completed 201712/28/2020 Dysmenor edmund;Rec orded Elsewher e: No Locat ion: [facility] arnaud [facility] S ource: EHR Phone Triage Specialist ce: N Practi ce ID: 0001 Ace lable Time: 11:00:00 AM Kirsten barnett [facility] 09:50:45 Pregnanc y detectio n examinat ion Completed 201812/28/2020 Encounte r for pregnanc y test, result positive ;Recorde d Elsewher e: No Locat ion: Kryscharissa arnaud [facility] S ource: EHR Phone Triage Specialist ce: N Jennifferti ce ID: 0001 Ace lable Time: 04:30:00 PM Kirsten barnett [facility] 09:51:18 Gestatio n period, 23 weeks [id number] Completed 201812/28/2020 23 weeks gestatio n of pregnanc y;Record ed Elsewher e: No [facility] Phone Triage Specialist ce: N Jennifferti ce ID: 0001 Ace lable Time: 01:30:00 PM Kirsten barnett [facility] 09:50:58 Gestatio n period, 8 weeks [id number] Completed 201812/28/2020 8 weeks gestatio n of pregnanc y;Record ed Elsewher e: No [facility]: EHR Phone Triage Specialist ce: N Jennifferti ce ID: 0001 Ace lable Time: 10:00:00 AM Kirsten barnett [facility] 09:51:08 Dyspnea [id number] Completed 201812/28/2020 SOB;Mahin rded Elsewher e: No Locat ion: [facility] S ource: EHR Phone Triage Specialist ce: N Jennifferti ce ID: 0001 Ace lable Time: 10:30:00 AM Kirsten barnett [facility] 09:50:42 Pregnanc y, childbir th and puerperi um finding Completed 201812/28/2020 Encntr for suprvsn of normal first preg, third trimeste r;Record ed Elsewher e: No Locat ion: [facility] S ource: EHR Phone Triage Specialist ce: N Jennifferti ce ID: 0001 Ace lable Time: 09:30:00 AM Kirsten barnett [facility] 09:51:24 Gestatio n period, 18 weeks [id number] Completed 201812/28/2020 18 weeks gestatio n of pregnanc y;Record ed Elsewher e: No Locat ion: Kirt lares [facility] S ource: EHR Phone Triage Specialist ce: N Practi ce ID: 0001 Ace lable Time: 12:45:00 PM Kirsten Salas [facility] 09:50:[address] Concept Completed 201512/28/2020 Encntr for general adult medical exam w/o abnormal findings ;Recorde d Elsewher e: No Locat ion: Kirt arnaud [facility] S ource: EHR Phone Triage Specialist ce: N Practi ce ID: 0001 Ace lable Time: 01:00:00 PM Kirsten [facility] 09:51:32 Antenata l screenin g for malforma tion Completed 201812/28/2020 Encounte r for antenata l screenin g for malforma tions;Re corded Elsewher e: No Locat ion: Kryscharissa arnaud [facility] S ource: EHR Phone Triage Specialist ce: N Practi ce ID: 0001 Ace lable Time: 09:00:00 AM Kirstenmanas Salas [facility] 09:50:29 heart finding Completed 201812/28/2020 Abnlt in heart rate and rhythm comp labor and delivery ;Recorde d Elsewher e: No Locat ion: Kryscharissa arnaud [facility] S ource: EHR Phone Triage Specialist ce: N Practi ce ID: 0001 Ace lable Time: 04:00:00 PM Kirstenmanas Salas [facility] 09:50:47 Gestatio n period, 34 weeks [id number] Completed 201812/28/2020 34 weeks gestatio n of pregnanc y;Record ed Elsewher e: No Locat ion: Kirt arnaud [facility] S ource: EHR Phone Triage Specialist ce: N Practi ce ID: 0001 Ace lable Time: 04:00:00 PM [facility] 09:[facility]04 Pregnanc y, childbir th and puerperi um finding Completed 201812/28/2020 Encntr for suprvsn of normal first preg, second trimeste r;Record ed Elsewher e: No Locat ion: [facility] S ource: EHR Phone Triage Specialist ce: N Practi ce ID: 0001 Ace lable Time: 02:30:00 PM Kirsten barnett [facility] 09:51:22 Cyst of ovary [id number] Completed 201712/28/2020 Unspecif ied ovarian cyst, left side;Rec orded Elsewher e: No Locat ion: [facility] S ource: EHR Phone Triage Specialist ce: N Practi ce ID: 0001 Ace lable Time: 02:00:00 PM Kirsten barnett [facility] 09:50:38 Deep pain on intercou rse [id number] Completed 201712/28/2020 Deep dyspareu delores;Mahin rded Elsewher e: No Locat ion: [facility] S ource: EHR Phone Triage Specialist ce: N Practi ce ID: 0001 Ace lable Time: 11:00:00 AM Kirsten barnett [facility] 09:50:40 Gestatio n less than 9 weeks [id number] Completed 201812/28/2020 Less than 8 weeks gestatio n of pregnanc y;Practi ce ID: 0001 Kirsten barnett [facility] 09:50:50 Gestatio n period, 19 weeks [id number] Completed 201812/28/2020 19 weeks gestatio n of pregnanc y;Practi ce ID: 0001 Kirsten barnett [facility] 09:50:54 Baseline bradycar lanny [id number] Completed 201812/28/2020 Diseases of the circ sys comp pregnanc y, second trimeste r;Practi ce ID: 0001 Kirsten Salas [facility] 1 09:50:33 Endometr iosis (clinica l) [id number] Active 2023 Kaye Ayon [facility] 4 10:00:52 Problem Notes None recorded. Procedures Surgical History Date Name Laterality Status Provider Name and Address Organization Details Recorded Time 12/19/19 24 Laparoscopy completed Kaye Ayon [facility] 12/26/2023 20:35:11 07/28/20 21 Date of Last Pap Smear completed Kirsten Salas [facility] 08/13/2023 15:44:20 10/01/19 20 excision of epidermoid cyst of buttock completed Kaye Ayon [facility] 12/26/2023 20:33:40 06/27/20 19 section completed Kayehumera Ayon [facility] 12/26/2023 20:34:11 total excision of bilateral fallopian tubes completed MAGGY Ramos [address], [place], [address], [facility] 10/14/2024 14:27:16 Removal of fallopian tube completed Cherelle Mayes [facility] 10/14/2024 14:36:38 Imaging Results Imaging Date Name Status LastModified by Organiz ation Details LastModified Time 06/29/2023 US, pelvis completed [email or web address] Ultrasound [facility] [address], [place], [address], 07/23/2023 21:26:48 Procedure Notes None recorded. Medical Equipment None Reported. Allergies Allergen ID Allergen Name Allergen Category Reaction Reaction Severity Criticality Documentation Date Start Date Code Code System Note Provider Name and Address Organization Details Recorded Time 13817 wheat gluten extract food Not available Not available Not available 09/17/2020 70088 81 RxNorm Comme nt: [facility]; [facility] Available [facility] 14:14:52 Medications Name Sig Start Date Stop Date Status Note LastModified by Organization Details LastModified Time azithromy varun 250 mg tablet 07/28 completed Not Available Not Available Not Available prednison e 20 mg tablet 07/28 completed Not Available Not Available Not Available metronida zole 500 mg tablet Take 1 tablet every 12 hours by oral route for 7 days. 08/02 completed Not Available Not Available Not Available Voltaren- XR 100 mg tablet,ex tended release take 1 tablet by oral route every day 09/16 completed Prescrib ed Elsewher e: No Locat ion: Jude arnaud [facility] odify By: dominic shirleyunter DateTime : 08/30/20 11:33:01 AM Not Available Not Available Not Available Macrobid 100 mg capsule take 1 capsule by oral route every 12 hours with food 11/27 completed Prescrib ed Elsewher e: No [facility] odify By: rico wade DateTime : 11/05/19 04:30:00 PM Not Available Not Available Not Available dicyclomi ne 20 mg tablet take 1 tablet by oral route 4 times every day 11/05 completed Prescrib ed Elsewher e: No Locat ion: [facility] arnaud [facility] odify By: rico Bergeron ter DateTime : 09/16/20 01:30:00 PM Not Available Not Available Not Available Prevalite 4 gram powder for susp in a packet take 1 packet by oral route 3 times every day dissolve d in 2 to 6 ounces of water or noncarbo nated beverage before meals 11/05 completed Prescrib ed Elsewher e: Yes Loca tion: Kirt lares [facility] odify By: rico Bergeron ter DateTime : 09/16/20 01:30:00 PM Not Available Not Available Not Available Vitamin D2 1,250 mcg (50,000 unit) capsule take 1 capsule by oral route every week 11/05 completed Prescrib ed Elsewher e: No Locat ion: [facility] M odify By: rico z Rubio wade DateTime : 08/30/20 18 02:56:32 PM Not Available Not Available Not Available 28 mg iron-800 mcg tablet 12/28 completed Prescrib ed Elsewher e: Yes Loca tion: [facility] arnaud [facility] Jose odify By: maría saul DateTime : 07/05/20 19 10:15:00 AM Not Available Not Available Not Available Vitals Date Recorded Body height Body mass index (BMI) Body weight Systolic blood pressure Diastolic blood pressure Provider Name and Address Organization Details Last Updated DateTime 07/28/2021 157.48 cm 20.3 kg/m2 11455.75 g 118 mm[Hg] 81 mm[Hg] [facility] 1 16:04:23 Date Recorded Body height Body mass index (BMI) Body weight Systolic blood pressure Diastolic blood pressure Provider Name and Address Organization Details Last Updated DateTime 08/13/2023 157.48 cm 20.1 kg/m2 92690.16 g 126 mm[Hg] 83 mm[Hg] [facility] 3 15:44:00 Date Recorded Body height Body mass index (BMI) Body weight Systolic blood pressure Diastolic blood pressure Provider Name and Address Organization Details Last Updated DateTime 09/05/2023 157.48 cm 20.1 kg/m2 66124.16 g 117 mm[Hg] 73 mm[Hg] [facility] 3 17:14:39 Date Recorded Body height Body mass index (BMI) Body weight Systolic blood pressure Diastolic blood pressure Provider Name and Address Organization Details Last Updated DateTime 12/25/2023 157.48 cm 19.8 kg/m2 32056.98 g 112 mm[Hg] 80 mm[Hg] Kaye Ayon [facility] 4 09:58:11 Date Recorded Body height Body mass index (BMI) Body weight Systolic blood pressure Diastolic blood pressure Provider Name and Address Organization Details Last Updated DateTime 10/14/2024 157.48 cm 21.7 kg/m2 41564.77 g 117 mm[Hg] 74 mm[Hg] Cherelle Mayes [facility] 14:30:42 Social History Question Answer Notes LastModified by Organizat ion Details LastModified Time Tobacco Smoking Status Never Smoker Kirsten Salas anibal [facility] 12/28/2020 09:55:29 What Is Your Level Of Alcohol Consumption? None Information not available 02/02/2021 Are You Blind Or Do You Have Difficulty Seeing? No Information n ot available 02/02/2021 What Is Your Level Of Caffeine Consumption? Moderate [email or web address] Information not available 12/26/2023 In The 14 Days Before Symptom Onset, Have You Had Close Contact With A Laboratory-confirm ed COVID-19 While That Case Was Ill? No [email or web address] Information n ot available 12/26/2023 In The 14 Days Before Symptom Onset, Have You Had Close Contact With A Person Who Is Under Investigation For COVID-19 While That Person Was Ill? No [email or web address] Information not available 12/26/2023 Have You Been To An Area Known To Be High Risk For COVID-19? No [email or web address] Information not available 12/26/2023 Are You Currently Employed? Yes Information not available 02/02/2021 Are You Deaf Or Do You Have Serious Difficulty Hearing? No Information not available 02/02/2021 What Type Of Diet Are You Following? REGULAR Information n ot available 02/02/2021 What Is The Highest Grade Or Level Of School You Have Completed Or The Highest Degree You Have Received? 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 Yes Information not available 02/02/2021 Do You Have Smoke And Carbon Monoxide Detectors In Your Home? Yes Information not available 02/02/2021 Do You Feel Stressed (tense, Restless, Nervous, Or Anxious, Or Unable To Sleep At Night)? [id number] Information not available 02/02/2021 Do You Use Any Illicit Or Recreational Drugs? No Information not available 02/02/2021 Do You Use Sunscreen Routinely? Yes Information not available 02/02/2021 Has Tobacco Cessation Counseling Been Provided? No [email or web address] Information not available 12/26/2023 Do You Or Have You Ever Used Any Other Forms Of Tobacco Or Nicotine? No [email or web address] Information not available 12/26/2023 Sex: Unknown Functional Status Question Answer Note LastModified by Organizat ion Details LastModified Time Do you have difficulty walking or climbing stairs? No [email or web address] Information not available 12/26/2023 Are you able to walk? YESWOREST Information not available 02/02/2021 Are you able to care for yourself? Yes [email or web address] Information not available 12/26/2023 Do you have difficulty dressing or bathing? No [email or web address] Information not available 12/26/2023 What is your exercise level? Occasional Information not available 02/02/2021 Mental Status None recorded. Family History Relationship Description Onset Age of this Age Resolved Age Notes LastModified by Organization Details LastModified Time Mother Malignant tumor of breast [email or web address] Not available 2020 09:54:10 Mother Diabetes mellitus [email or web address] Not available 2020 09:54:20 Mother Congenital heart disease [email or web address] Not available 2020 09:54:46 Maternal Aunt Diabetes mellitus [email or web address] Not available 2020 09:54:20 Maternal Aunt Malignant tumor of breast x2 both under age 50 Not available 07/28/2021 16:06:54 Maternal Grandmother Congenital heart disease [email or web address] Not available 2020 09:54:46 Maternal Grandmother Diabetes mellitus [email or web address] Not available 2020 09:54:55 Maternal Grandmother Malignant tumor of breast [email or web address] Not available 2020 16:07:02 Paternal Grandfather Malignant tumor of lung [email or web address] Not available 2020 09:55:14 Medical History Condition Response Allergies (Food, seasonal, environmental ) N Other Y Drug/Latex Allergies/Reactions Y Breast Cancer N Blood Transfusion N Dermatologic Disorders N Lung Disease N Defects or Inherited Disease N Breast Problem N Gestational Diabetes N Hematologic disorders N Anesthesia Complications N History of STI N Deep Vein Thrombosis N Polycystic ovary syndrome N Anxiety Disorder N Autoimmune disease N Arthritis N Polyps N Infertility N Acid Reflux (GERD) N History of abnormal pap N Cancer N Varicosities N Stroke N Neurologic/Epilepsy N Endometriosis Y High Cholesterol N Fibromyalgia N Headaches N Kidney Disease N Heart Problems N Thyroid Problems N Kidney or Bladder Problems N GI Problems N Eating Disorder N Anemia N Art (IVF or FET) N Psychiatric Illness N Ovarian Cancer N Diabetes N Pulmonary (TB, Asthma) N Hepatitis/Liver Disease N No Past Medical History N Eczema N Urinary Tract Infection N Abuse/Domestic Violence N Asthma N Trauma/Violence N Depression/ depression N Heart Disease N Pre-Eclampsia N Hypertension N Osteoporosis N Thrombophilias N Gynecological History Statement/Question Response Abnormal Pap N Date of Last Mammogram Flow Moderate Date of LMP 09/15/2024 Was last menstrual period normal Y STIs/STDs N HPV Vaccine N Duration of Flow (days) 6 Current Control Method Sterilizati on Age at First Child 29 Are cycles usually normal Y Frequency of Cycle (Q days) 30 Sexually Active? Y Menses Monthly Y Date of DEXA bone scan Age of first menstrual cycle 18 Date of Last Pap Smear 07/28/2021 Sexual Problems? N Desired Control Method None LMP Approximate Obstetrics History GPAL:G 1 P 1 0 0 1 Type Value Full Term 1 Living 1 Total 1 Past Encounters Encounter ID Performer Location Encounter Start Date Encounter Closed Date Diagnosis/Indication Diagnosis SNOMED-CT Code Diagnosis ICD10 Code Diagnosis Note [id number] Mehran Acosta MD [place] [address],[facility] [place] [address] 12/28/2020 09:26:15 12/28/2020 16:33:12 Pain in pelvis 96912781 R10.2 [id number] Jania Reddy [place] [address],[facility] [place] [address] 01/03/2021 09:17:05 01/03/2021 10:42:34 Pain in pelvis 01726015 R10.2 [id number] Mehran Acosta MD [place] [address] [address] 01/03/2021 11:39:24 01/03/2021 16:08:05 Abdominal pain 22372285 R10.9 This patient is a 30-year-ol d female with abdominal wall pain. We had concern about ovarian cyst. Pelvic ultrasound appeared normal. Review her symptoms shown a right lower quadrant pain at the incision site of her delivery. I believe a CT of her abdomen and pelvis were quadrant rule out incisional hernia and abdominal wall mass and inguinal hernia. We discussed BRCA testing. I believe she should have and I recommende d to her. Her mother and her grandmothe r both had breast cancer in their 50s. [id number] [facility] [address] [address] 02/02/2021 12:39:23 02/02/2021 15:43:25 Urinary symptoms 892812157 R39.9 Chronic pe lvic pain of female 535748457 R10.2 N94.12 Today, We agreed to trial of pelvic floor therapy including the area of abdomen that causes her discomfort if palpated. Her hx of lymes dz does somewhat complicate treatments /therapies as she is very sensitive to multiple medication s. We agreed to be conservati ve at this time but did discuss referral to [facility] if needed moving forward maria ines for evaluation of umbilical pain. She agrees. We will f/u x 3mos after PT is completed. order given She will call and schedule. Time spent in visit is a total of 28 mins with at least 50% of visit consisting of counseling and review of plan of care. Additional precaution dave measures were taken to minimize potential exposure to the Covid-19 virus during this patient? s visit, including available hand catalyst operator gasoline upon arrive, temperatur e check and being asked a series of screening questions. All staff wore face coverings during this encounter, as well as provided additional cleaning and sanitizing of all surfaces, including countertop s, pens, chairs, door handles, light switches, etc, prior to and following the patient? s visit. Chronic constipation [id number] K59.09 Consider daily stool softner tablet or miralax Consider refer to GI for further issues. [id number] Mehran Acosta MD [place] [address] [address] 07/28/2021 15:50:23 07/28/2021 17:17:59 Gynecologic examination 90574509 Z01.419 This patient is here for her annual exam. A thorough history was taken. A physical exam was performed. Age appropriat e routine health screening was ordered, performed, and discussed. Recommende d testing was ordered. She was asked to follow up in one year. She will be informed of any test results. Strong family history of breast cancer. Mammogram - ordered Pap - today [id number] Mehran Acosta MD [place] [address] [address] 08/13/2023 15:20:52 08/13/2023 16:25:17 Dyspareunia 31702268 N94.10 Dysmenorrhea 323181355 N 94.6 Menorrhagia 951291398 N9 2.0 Chocolate cyst of ovary 632108607 N80.109 Pain in pelvis 33722022 R10.2 this patient is a 33-year-ol d female who presents for pelvic pain. She was in the ER and was seen as an outpatient by her primary care doctor where an ultrasound was obtained that showed an endometrio ma. Patient has pain with intercours e and severe menorrhagi a. Her pelvic pain is severe and longstandi ng. We were working on this issue 3 years ago. It has gotten worse over time. We talked about treatment options. We talked about medical treatment options. Talked about medical treatment options for dyspareuni a and menorrhagi a. We talked about endometriu m. Talked the out the etiology, natural history, treatment of endometrio ma and endometrio sis. Given her longstandi ng pelvic pain patient would like to perform diagnostic laparoscop y. We agreed at this time to perform bilateral salpingect gisselle and endometria l ablation as well. This would likely solve some of her problems. We talked about menorrhagi a. Talked about etiology, natural history, treatment. We talked about pelvic pain and endometrio sis. Talked about etiology, natural history and treatment. Talked about the effect of endometria l son dyspareuni a and sexual intimacy. We spent over 40 minutes face-to-fa ce. We talked about multiple Complex subjects and agreed to perform surgery. More than 50% of this meeting was counseling . [id number] Mehran Acosta MD [place] [address],[facility] [address] 09/05/2023 17:06:28 09/06/2023 16:32:21 Female sterilization 30274421 Z30.2 Pain in pelvis 17320256 R10.2 this patient is a 33-year-ol d female with unwanted fertility and pelvic pain with endometrio ma. We have agreed perform diagnostic laparoscop y with bilateral salpingect gisselle. She understand s the risks, benefits, and alternativ es. She is completed the informed consent process and is ready to proceed. Endometrio sis of ovary 326345992 N80.109 [id number] Mehran Acosta MD [place] [address],[facility] [address] 12/25/2023 09:51:40 12/25/2023 10:54:37 Postoperative care 936813269 Z48.89 This patient is a 43-year-ol d female who presents for postop follow-up. She is 1 week postop from a diagnostic laparoscop y. Her incisions are clean dry and intact. She has no complaints . She is recovering normally. She will follow up as needed. she was offered adjunct therapy. She declined. [id number] MAGGY Ramso [place] [address] [address] 10/14/2024 14:04:53 10/14/2024 15:54:44 Gynecologic examination 38842559 Z01.419 WWEB - BSPap - done todaySTI screen - declinedRo utine labs - UTD/PCPRTC in 1 yr or sooner if needed It is strongly advised to have an annual flu shot and up can obtain at most pharmacies . If you have not had a TDap shot in the last 10 years you should obtain one as well. Discussed with patient & provided with informatio n regarding the HPV vaccine if applicable . Encourage safe sexual practices, to use condoms and limit partners if not already in a monogamous relationsh ip. Do monthly self breast exams. BRCA testing is now available for patients with strong genetic history of female cancer. If interested contact the office. Engage in regular exercise. Avoid tobacco and illicit drugs. This lifestyle behavior pattern will lead to less health conditions and longer life span. If BMI greater than 25 dietary consult advised. Questions answered. Breast lump 38278947 N63 .0 diagnostic mammogram with right breast u/s order given to pt Family his tory of breast cancer [id number] Z80.3 Health Concerns Section Related Observation LastModified by Organization Detai ls LastModified Time None Recorded Concern Status LastModified by Organization Details LastModified Time None Recorded Advance Directives Directive None Recorded Payers Encounter Date Sequence Insurance Name Policy Number Policy Butterfield Covered Member ID Butterfield Member ID Guarantor Name 07/28/2021 1 [facility]: ([facility] [id number] Tamara Bliss [id number] Tamara Bliss 08/13/2023 1 [facility] [id number] Tamara Bliss [id number] Tamara Bliss 09/05/2023 1 [facility] (PPO) [id number] Tamara Bliss [id number] Tamara Bliss 12/25/2023 1 [facility] [id number] Tamara Bliss [id number] Tamara Bliss 10/14/2024 1 [facility] [id number] Tamara Bliss [id number] Tamara Bliss Notes Date Note Type Note Provider Name and Address Organization Details Recorded Time 07/28/2021 text/html Annual GYNReport ed bypatient.History:n o gynecologic complaints Menstrual cycle:Normal menses Urinary symptoms:No hematuria; No incontinence Vulva:No genital lesion Vagina:Normal vaginal discharge Breast:No breast pain; No breast lump; No nipple discharge Current Contraception:Satis fied with current contraception; Partner had vasectomy Sexual complaints:No sexual complaints Menopausal Symptoms:No menopausal symptoms Psychological symptoms:No depression; No anxiety Preventive measures:Encourage self breast examination; Encourage regular exercise Mehran Acosta MD [address], [place], [address], [facility] 07/28/2021 16:37:50 08/13/2023 text/html this patient is a 33-year-old female who presents for pelvic pain. She was in the ER and was seen as an outpatient by her primary care doctor where an ultrasound was obtained that showed an endometrioma. Patient has pain with intercourse and severe menorrhagia. Her pelvic pain is severe and longstanding. We were working on this issue 3 years ago. It has gotten worse over time. We talked about treatment options. We talked about medical treatment options. Talked about medical treatment options for dyspareunia and menorrhagia. We talked about endometrium. Talked the out the etiology, natural history, treatment of endometrioma and endometriosis. Given her longstanding pelvic pain patient would like to perform diagnostic laparoscopy. We agreed at this time to perform bilateral salpingectomy and endometrial ablation as well. This would likely solve some of her problems. We talked about menorrhagia. Talked about etiology, natural history, treatment. We talked about pelvic pain and endometriosis. Talked about etiology, natural history and treatment. Talked about the effect of endometrial son dyspareunia and sexual intimacy. We spent over 40 minutes [id number]. We talked about multiple Complex subjects and agreed to perform surgery. More than 50% of this meeting was counseling. Mehran Acosta MD [address], [place], [address], [facility] 08/13/2023 16:24:48 09/05/2023 text/html this patient is a 33-year-old female who presents for preoperative care. She has pelvic pain and unwanted fertility. We agreed to perform diagnostic laparoscopy and bilateral salpingectomy. She is a possible endometrioma. The patient understands the procedure. The procedure was described to the patient in great detail. the patient also understands the risks. The risks were also explained in detail. She understands that injuries May occur during surgery. She understands these injuries can result in hospitalization, more surgery, and severe illness. She understands there is risk of hemorrhage and infection. Mehran Acosta MD [address], [place], [address], [facility] 09/06/2023 15:57:56 12/25/2023 text/html This patient is a 43-year-old female who presents for postop follow-up. She is 1 week postop from a diagnostic laparoscopy. Her incisions are clean dry and intact. She has no complaints. She is recovering normally. She will follow up as needed. she was offered adjunct therapy. She declined. Mehran Acosta MD [address], [place], [address], [facility] 12/25/2023 10:28:17 10/14/2024 text/html Annual GYNReport ed bypatient.Menstrual cycle:Normal menses Urinary symptoms:No hematuria; No incontinence Vulva:No genital lesion Vagina:Normal vaginal discharge Breast:No breast pain; No nipple discharge;Breast lump Current Contraception:Satis fied with current contraception; BS Sexual complaints:No sexual complaints; No pain during intercourse; Normal libido Menopausal Symptoms:No menopausal symptoms; Normal vaginal lubrication Psychological symptoms:No depression; No anxiety; No PMDD Preventive measures:Encourage self breast examination; Encourage regular exercise; Encourage no tobacco use; Encourage regular mammograms starting age 40Notes:34yo wweh/o endometriosis (denies any current symptoms)BC - BSlast pap 2020 : nilm has noticed a right breast lump for the past few months. Comes and goes, tender near her period. fam hx:mother with BC : 50maternal grandmother with BC : unknown agematernal aunt with BC : unknown agept has had negative genetic testing MAGGY Ramos [address], [place], [address], [facility] 10/14/2024 15:51:02 OBGyn Episode Ob Episode Information Episode Created Date Number of Fetuses Patient Bloodtype Patient rh Status Prepregnancy Weight lbs Domestic Partner Domestic Partner Phone Father Name Commercial Loan Analyst Status 12/29/19 21 1 CLOSED Fetus Data First Name Last Name Admitted to NICU Weight (g) Sex Living Outcome Pediatric Complications Fetus ID Race Codes Race Delivery Type 3203.26 6704 M Full Term [id number] Primary Tanner Calculation Initial Tanner Date Initial Exam Date Initial Exam Provider Initial Ultrasound Date Last Menstrual Period Date Ultra Sound Weeks Gestation 0 Eighteen To Twenty Week Tanner Update Ultra Sound Date Fundal Height At Umbil Quickening Date Ultra Sound Latest Weeks Gestation Final Tanner Confirmed By Final Tanner Confirmed Date Final Tanner Date Ultra Sound Latest Days Gestation 0 0 Menstrual History Last Menstrual Date Menses Monthly On Bcp Conception Prior Menses Frequency Hcg Plus Date Menarche Onset Age Delivery Information Delivery Date Delivery Type Labor Anesthesia Weeks Gestation Incision Type Labor Labor Length Hrs Delivered By Post Complications Tubal Sterilization Discharge Date Comments 9 39 Chorioam n ionitis Discharge Information Feeding Method Contraceptive Method Maternal HG B and HCT Levels
--- OUTSIDE RECORDS SUMMARY | 2024-10-29 11:29 | XMS_ITS | Encounter Summary ---
Author Organization [facility] Address [address] [place] [address]. [place], [place] [address] [place] [address] Care Team Providers Care Insulation Batting Machine Operator Name Role Phone Valentina Harrington MD Primary Care Provider [phone]- [phone] Encounter Details Date Type Department Care Team (Late st Contact Info) Description 03/23/2020 Prep for Procedure [facility] Pre-Admission Testing [address] [facility] [place], [place] [id number] Jayy Puri MD [address] [place] [address] Social History Tobacco Use Types Packs/Day Years Used Date Smoking Tobacco: Never Smokeless Tobacco: Never Alcohol Use Standard Drinks/Week Comments Not Currently 0 (1 standard drink = 0.6 oz pur e alcohol) Comments No Sex and Gender Information Value Date Recorded Sex Assigned at Not on file Legal Sex Female 8:47 PM CDT Gender Identity Not on file Sexual Orientation Not on file COVID-19 Exposure Response Date Recorded In the last month, have you been in contact with someone who was confirmed or suspected to have Coronavirus / COVID-19? No / Unsure 03/23/2020 12:03 PM CDT documented as of this encounter Plan of Treatment Not on file documented as of this encounter Visit Diagnoses Diagnosis Preop examination- Primary Preoperative examination, unspecified documented in this encounter Additional Health Concerns Infection Onset Date Last Indicated Resolved Time COVID-19 Rule Out 03/29/2020 03/29/2020 03/30/2020 3:00 PM CDT documented as of this encounter Care Teams Insulation Batting Machine Operator Relationship Specialty Start Date End Date Valentina Harrington MD [address] [place] [address] PCP - General FAMILY PRACTICE 03/26/20 documented as of this encounter
--- OUTSIDE RECORDS SUMMARY | 2024-10-29 11:29 | XMS_ITS | Referral Summary ---
Author Organization [facility] Address [address] [place] [address] Care Team Providers Care Divemaster Name Role Phone Pancho Rogers DC Primary [...] Tamara is currently undergoing work-up with a cafe associate and we will follow along. Of note, [...] Name Administration Dates Next Due Tdap 06/30/2019 Social History Tobacco Use Types Packs/Day Years [...] on file Legal Sex Female 2:37 AM SENIOR ECONOMIST Gender Identity Not on file Sexual Orientation Not on file Last Filed Vital Signs Vital Sign Reading Time Taken Comments Blood Pressure 90/68 11/01/2023 2:25 PM SENIOR ECONOMIST Pulse 79 11/01/2023 2:25 PM SENIOR ECONOMIST Temperature 36.8 ??C (98.3 ??F) 02/26/2020 9:31 AM CD T Respiratory Rate 16 11/01/2023 2:25 PM SENIOR ECONOMIST Oxygen Saturation 99% 11/01/2023 2:25 PM SENIOR ECONOMIST Inhaled Oxygen Concentration - - Weight 49.4 kg (109 lb) 11/01/2023 2:25 PM SENIOR ECONOMIST Height 157.5 cm (5' 2 ) 11/01/2023 2:25 PM SENIOR ECONOMIST Body Mass Index 19.94 11/01/2023 2:25 PM SENIOR ECONOMIST Plan of Treatment Not on file Procedures Procedure Name Priority Date/Time Associated Diagnosis Comments HEPATITIS C ANTIBODY Routine 12/24/2018 HM PAP SMEAR Routine 11/08/2017 from Last 3 Months or Most Recently Relevant to Health Maintenance Results * Hepatitis C antibody (12/24/2018) Hep C Ab negative Blood specimen (specimen) Mehran Acosta MD LAB MICROBIOLOGY - GENERAL OR DERABLES Final Result * PAP SMEAR (11/08/2017) HM Pap smear Normal 11/08/2017 Anne-Marie Provider HEALTH MAINTENANCE Final Result from Last 3 Months or Most Recently Relevant to Health Maintenance Insurance [employer] OPEN ACCESS [employer]ESS Care Teams Divemaster Relationship Specialty Start Date End Date Pancho Rgoers DC [address] [place] [address] PCP - General Chiropractic Medicine 09/21/23
--- OUTSIDE RECORDS SUMMARY | 2024-10-29 11:29 | XMS_ITS | Encounter Summary ---
Author Organization [facility] Address [address] [place] [address]. [place], [place] [address] [place] [address] Care Team Providers Care Distiller Name Role Phone Valentina Harrington MD Primary Care Provider [phone]- [phone] Encounter Details Date Type Department Care Team (Latest Contact Info) Description 08/06/2018 Abstract [facility] , Donna Salvador MD Social History Tobacco Use Types Packs/Day Years Used Date Smoking Tobacco: Never Assessed Comments Unknown Sex and Gender Information Value Date Recorded Sex Assigned at Not on file Legal Sex Female 8:47 PM CDT Gender Identity Not on file Sexual Orientation Not on file documented as of this encounter Plan of Treatment Not on file documented as of this encounter Visit Diagnoses Not on filedocumented in this encounter Additional Health Concerns Infection Onset Date Last Indicated Resolved Time COVID-19 Rule Out 03/29/2020 03/29/2020 03/30/2020 3:00 PM CDT documented as of this encounter Care Teams Distiller Relationship Specialty Start Date End Date Valentina Harrington MD [address] [place] [address] PCP - General FAMILY PRACTICE 03/26/20 documented as of this encounter
== END 2024-10-29 10:29 | disposition home or self-care (01) ==
LOC: ANHIMG 10:36
PROVIDERS: PCP Chiropractor; Visit Provider Nurse Practitioner
DX: N63.11 Unspecified lump in the right breast, upper outer quadrant (principal)
CPT/HCPCS: 76642; 77062; 77066; G0279